=== PATIENT | male | born 1980 | race Caucasian/White ===

== ENCOUNTER 2023-11-17 08:36 | Outpatient (CLI) | payer OTHER, SELFPAY | END 2023-11-17 08:37 | disposition home or self-care (01) | LOC: NFLDREF 08:36 | PROVIDERS: PCP Internal Medicine Addiction Medicine; Visit Provider Internal Medicine Addiction Medicine | DX: R42 Dizziness and giddiness (principal); R00.0 Tachycardia, unspecified; F11.90 Opioid use, unspecified, uncomplicated | CPT/HCPCS: 84443 ==